=== PATIENT | male | born 1970 | race Caucasian/White ===

== ENCOUNTER 2019-05-09 15:55 | Emergency (ER) | payer BC ==
[~2019-05-09] VITALS: Ht 162.6 cm; Wt 79.4 kg
--- NOTE | 2019-05-09 16:00 | NUR ---
48 y/o m biba for new onset of diabetes. Pt was seen at urgent care for dizziness, blurred vision and poor balance. Per EMS blood sugar was in the 250s. Pt A&O x4. Respirations even and unlabored. Pt denies any pain. Pain level 0/10. Blood sugar currently 234. Pt connected to potline monitor. HOB elevated, bed in lowest position, bed rail up x1. Waiting for ERMD to evalute pt. Allergies: NKA Med hx: DM, HTN, and HDL
[2019-05-09 16:01] VITALS: BP 18/98
--- NOTE | 2019-05-09 16:12 | NUR ---
Pt ambulated to the restroom with steady gait to provide urine sample
[2019-05-09] MEDS ORDERED: NACL 0.9% 1,000 ML IV ONE (16:20)
[2019-05-09] MEDS ORDERED: hydrALAZINE 20 MG/ML VIAL IVP ONE ×2 (16:20→19:00)
--- NOTE | 2019-05-09 16:45 | NUR ---
EMT at bedside performing EKG
--- NOTE | 2019-05-09 16:53 | NUR ---
Urine and Blood given to phleb Светлана
[2019-05-09] MEDS ORDERED: cloNIDine 0.1 MG TAB PO ONE (17:00)
[2019-05-09 17:04] LABS: BASOPHILS % (AUTO) 0.5 % (0.0-2.0); EOSINOPHILS # (AUTO) 0.1 K/uL (0-0.4); EOSINOPHILS % (AUTO) 0.7 % (0.0-4.0); HEMATOCRIT 45.4 % (36-52); HEMOGLOBIN 15.6 g/dL (12.0-18.0); LYMPHOCYTES # (AUTO) 1.1 K/uL (2.0-11.5); LYMPHOCYTES % (AUTO) 14.4 % (20.5-51.1); MEAN CORPUSCULAR HEMOGLOBIN 31 pg (27-31); MEAN CORPUSCULAR HGB CONC 34 g/dL (33-37); MEAN CORPUSCULAR VOLUME 89.7 fL (80-94); MONOCYTES # (AUTO) 0.4 K/uL (0.8-1.0); MONOCYTES % (AUTO) 5.9 % (1.7-9.3); NEUTROPHILS # (AUTO) 5.8 K/uL (1.8-7.7); NEUTROPHILS % (AUTO) 78.5 % (42.2-75.2); PLATELET COUNT (AUTO) 161 K/uL (140-450); RED BLOOD CELL COUNT(AUTO) 5.06 MIL/uL (4.20-6.10); RED CELL DISTRIBUTION WIDTH 13.3 % (11.6-13.7); WHITE BLOOD COUNT (AUTO) 7.4 K/uL (4.8-10.8)
[2019-05-09 17:10] LABS: APPEARANCE,URINE CLEAR (CLEAR); BARBITURATE, URINE NEG. ng/ml (NEG <=200); BENZODIAZEPINE, URINE NEG. ng/mL (NEG <=200); BILIRUBIN,URINE NEGATIVE (NEGATIVE); BLOOD, URINE NEGATIVE (NEGATIVE); CANNABINOID, URINE NEG. ng/mL (NEG <=50); COCAINE, URINE NEG. ng/mL (NEG <=300); COLOR,URINE YELLOW (YELLOW); LEUKOCYTE ESTERASE ,URINE NEGATIVE (NEGATIVE); NITRITE, URINE NEGATIVE (NEGATIVE); OPIATE, URINE NEG. ng/mL (NEG <=2000); PHENCYCLIDINE SCREEN,URINE NEG. ng/mL (NEG <=25); UGLUCOSE 3+ (NEGATIVE)
--- NOTE | 2019-05-09 17:24 | NUR ---
Pt resting in bed awake and alert on cell phone. Current BP 153/96. Will continue to monitor.
--- NOTE | 2019-05-09 17:41 | NUR ---
Pt has visiter at bedside
[2019-05-09 17:54] LABS: ALBUMIN 4.2 g/dL (3.4-5.0); ANION GAP 18.7 (8-16); CARBON DIOXIDE 23.4 mmol/L (21-32); CREATININE 0.9 mg/dL (0.7-1.3); POTASSIUM 4.1 mmol/L (3.5-5.1); TOTAL BILIRUBIN 0.6 mg/dL (0.0-1.0)
[2019-05-09] MEDS ORDERED: cloNIDine 0.1 MG TAB ONE (18:23)
--- NOTE | 2019-05-09 19:16 | NUR ---
Transfer of care and report given to ERIN Mcdowell
--- NOTE | 2019-05-09 19:18 | NUR ---
RECEIVED REPORT FROM ERIN DIAZ. TRANSFER OF CARE AT THIS TIME
--- NOTE | 2019-05-09 19:25 | NUR ---
PER DR MENG, PT ABLE TO BE DISCHARGED AFTER 15 MIN AFTER MEDICATION GIVEN. PT ASYMPTOMATIC
[2019-05-09 19:38] VITALS: BP 142/96
--- NOTE | 2019-05-09 19:39 | NUR ---
Patient discharged with v/s stable. Written and verbal after care instructions given and explained. Patient alert, oriented and verbalized understanding of instructions. Ambulatory with steady gait. All questions addressed prior to discharge. ID band removed. Patient advised to follow up with PMD. Rx of HYDROCHLOROTHIAZIDE given. Patient educated on indication of medication including possible reaction and side effects. Opportunity to ask questions provided and answered.
== END 2019-05-09 19:39 | disposition home or self-care (01) ==
LOC: MED 15:55
DX: E11.65 Type 2 diabetes mellitus with hyperglycemia (principal); I10 Essential (primary) hypertension; R42 Dizziness and giddiness
CPT/HCPCS: 36415; 80053; 80305; 81003; 82948; 84484; 85025; 93005; 96361; 96374; 96376; 99284; J0360; J7030

== ENCOUNTER 2019-05-17 09:56 | Emergency (ER) | payer BC ==
[~2019-05-17] VITALS: Ht 160 cm; Wt 77.1 kg
[2019-05-17 10:23] VITALS: BP 141/96
--- NOTE | 2019-05-17 10:56 | NUR ---
48 Y/O M C/O DIZZINESS/BLURRY VISSION UPON AWAKENING THIS MORNING. PT STATES THIS HAPPENED YESTERDAY WITH SAME SYMPTOMS, WENT TO URGENT CARE WHERE THEY CHECKD HIS BLOOD SUGAR AND GAVE HIM INSULIN. PT STATES HE HAS DM, DOES NOT TAKE MEDICATION OR CHECK BLOOD SUGAR. ACCUCHECK IN ED SHOWED 179. 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 BROTHER AT BEDSIDE, SIDE RAIL X1 IN PLACE. ZAIDA
--- NOTE | 2019-05-17 11:14 | NUR ---
Omar adrian in [facility] - 05/17/19 at 1326 by [facility] AT ARMS AT BEDSIDE DRAWING ORDERED LAB WORK.
[2019-05-17 11:25] LABS: BASOPHILS % (AUTO) 0.4 % (0.0-2.0); EOSINOPHILS % (AUTO) 0.2 % (0.0-4.0); HEMATOCRIT 48.4 % (36-52); HEMOGLOBIN 16.8 g/dL (12.0-18.0); LYMPHOCYTES # (AUTO) 0.9 K/uL (2.0-11.5); LYMPHOCYTES % (AUTO) 10.5 % (20.5-51.1); MEAN CORPUSCULAR HEMOGLOBIN 31 pg (27-31); MEAN CORPUSCULAR HGB CONC 35 g/dL (33-37); MEAN CORPUSCULAR VOLUME 90.1 fL (80-94); MONOCYTES # (AUTO) 0.5 K/uL (0.8-1.0); MONOCYTES % (AUTO) 5.5 % (1.7-9.3); NEUTROPHILS # (AUTO) 7.3 K/uL (1.8-7.7); NEUTROPHILS % (AUTO) 83.4 % (42.2-75.2); PLATELET COUNT (AUTO) 170 K/uL (140-450); RED BLOOD CELL COUNT(AUTO) 5.37 MIL/uL (4.20-6.10); RED CELL DISTRIBUTION WIDTH 13.3 % (11.6-13.7); WHITE BLOOD COUNT (AUTO) 8.8 K/uL (4.8-10.8)
[2019-05-17 11:38] LABS: ALBUMIN 4.4 g/dL (3.4-5.0); ANION GAP 15.2 (8-16); CARBON DIOXIDE 23.5 mmol/L (21-32); CREATININE 1.2 mg/dL (0.6-1.3); POTASSIUM 3.7 mmol/L (3.5-5.1); TOTAL BILIRUBIN 1.3 mg/dL (0.0-1.0)
[2019-05-17] MEDS ORDERED: NACL 0.9% 1,000 ML IV ONE (12:05)
--- NOTE | 2019-05-17 13:26 | NUR ---
PT RESTING COMFORTABLY, STATES FEELING BETTER AFTER HYDRATION.
[2019-05-17 13:42] VITALS: BP 141/96
--- NOTE | 2019-05-17 13:42 | NUR ---
Patient discharged with v/s stable. Written and verbal after care instructions given and explained. Patient verbalized understanding. Ambulatory with steady gait. All questions addressed prior to discharge. Advised to follow up with PMD.
== END 2019-05-17 13:42 | disposition home or self-care (01) ==
LOC: MED 09:56
DX: R73.9 Hyperglycemia, unspecified (principal); E87.1 Hypo-osmolality and hyponatremia; R79.89 Other specified abnormal findings of blood chemistry; R42 Dizziness and giddiness
CPT/HCPCS: 36415; 80053; 81002; 82948; 85025; 96360; 99283; J7030

== ENCOUNTER 2021-07-13 18:15 | Emergency (ER) | payer BC, OTHER ==
[~2021-07-13] VITALS: Ht 165.1 cm; Wt 69.4 kg
[2021-07-13 18:20] VITALS: BP 143/100
--- NOTE | 2021-07-13 18:36 | NUR ---
PT AMBULATED TO ER BED 6 WITH A STEADY GAIT.
[2021-07-13] MEDS ORDERED: HYDROcodone/APAP 5/325 MG 1 TAB TAB PO ONE (18:40)
[2021-07-13] MEDS ORDERED: KETOROLAC 30 MG/ML VIAL IM ONE (18:40)
--- NOTE | 2021-07-13 18:42 | NUR ---
51 Y/O MALE C/O LEFT LOWER BACK PAIN RADIATING DOWN HIS LEFT LEG 12/23 DESCRIBES . DENIES RECENT INJURY OR TRAUMA, REPORTS TAKING ADVIL WITH NO RELIEF. DENIES FEVER/CHILLS. DENIES N/V/D. PMH: HTN NKA
--- NOTE | 2021-07-13 19:17 | NUR ---
GAVE REPORT TO ERON MUSA. TRANSFER OF CARE AT THIS TIME.
--- NOTE | 2021-07-13 19:18 | NUR ---
RECEIVED ENDORSEMENT FROM JOSE MANUEL KHAN FOR TRANSFER OF CARE. PT IS STABLE.
--- NOTE | 2021-07-13 19:30 | NUR ---
UA SAMPLE COLLECTED FROM PT.
[2021-07-13] MEDS ORDERED: ACET-8386 PO (19:46)
[2021-07-13] MEDS ORDERED: IBUP-2213 PO (19:46)
[2021-07-13] MEDS ORDERED: LID5T TP (19:46)
[2021-07-13 20:03] VITALS: BP 140/90
--- NOTE | 2021-07-13 20:06 | NUR ---
Patient discharged with v/s stable. Written and verbal after care instructions given and explained. Patient alert, oriented and verbalized understanding of instructions. Ambulatory with steady gait. All questions addressed prior to discharge. ID band removed. Patient advised to follow up with PMD. Rx of HYDROCODONE/ACETAMINOPHEN 5-325, IBUPROFEN, AND LIDOCAINE HYD given. Patient REVIEWED on indication of medication including possible reaction and side effects. Opportunity to ask questions provided and answered.
== END 2021-07-13 20:06 | disposition home or self-care (01) ==
LOC: MED 18:15
DX: S39.012A Strain of muscle, fascia and tendon of lower back, initial encounter (principal); I10 Essential (primary) hypertension; Z79.899 Other long term (current) drug therapy; Z79.891 Long term (current) use of opiate analgesic; Z79.1 Long term (current) use of non-steroidal anti-inflammatories (NSAID); X58.XXXA Exposure to other specified factors, initial encounter; Y92.89 Other specified places as the place of occurrence of the external cause; Y93.89 Activity, other specified; Y99.8 Other external cause status
CPT/HCPCS: 81002; 96372; 99283; J1885